=== PATIENT | female | born 1940 | race Caucasian/White ===

== ENCOUNTER 2016-03-12 16:21 | Outpatient (CLI) | payer MEDICARE, OTHER | END 2016-03-12 16:22 | LOC: LABRHC 16:21 | PROVIDERS: ATTEND Family Medicine | DX: R30.0 Dysuria (principal) | CPT/HCPCS: 87086 ==

== ENCOUNTER 2016-03-26 08:20 | Outpatient (CLI) | payer MEDICARE, OTHER ==
[2016-03-26 09:12] LABS: eGFR (African) > 60; eGFR (Non-African) > 60
[2016-03-26 18:50] LABS: T3-UPTAKE 28.9 % (25.4-41.2)
== END 2016-03-26 08:21 ==
LOC: LAB 08:20
PROVIDERS: ATTEND Family Medicine
DX: I10 Essential (primary) hypertension (principal); E03.8 Other specified hypothyroidism
CPT/HCPCS: 36415; 80053; 80061; 84436; 84479

== ENCOUNTER 2016-08-20 15:55 | Outpatient (CLI) | payer MEDICARE, OTHER | END 2016-08-20 15:56 | LOC: LABRHC 15:55 | PROVIDERS: ATTEND Physician Assistant | DX: R30.0 Dysuria (principal) | CPT/HCPCS: 87086 ==

== ENCOUNTER 2017-01-20 10:04 | Outpatient (CLI) | payer MEDICARE, OTHER ==
--- NOTE | 2017-01-20 15:40 | Diagnostic Imaging Report ---
MELISSA GARCIA [facility] [id number] [facility] [address] [id number] Report Submission Date: Jan 20, 2017 10:35:23 AM VICE PRESIDENT OF RECRUITING Patient Study Name: PAOLA WHITLOCK Date: Jan 20, 2017 10:13:41 AM VICE PRESIDENT OF RECRUITING Modality Type: CR Gender: F Description: SPINE : 44 Institution: [facility] Physician: MELISSA GARCIA Examination: Cervical spine History: Injury Comparison exams: None available Findings: 3 views of the cervical spine demonstrate normal height and alignment. No anterior compression. No abnormal listhesis. Osteophytes and disc space narrowing from C4/C5 through C5/C6. No odontoid abnormality. No prevertebral abnormality. Impression: Mid cervical degenerative changes. No compression deformity. If patient is experiencing neurologic symptoms, consider obtaining MRI. Electronically signed on Jan 20, 2017 10:35:23 AM VICE PRESIDENT OF RECRUITING by: Syed BRICE
== END 2017-01-20 10:38 ==
LOC: LAB 10:04
PROVIDERS: ATTEND Family Medicine
DX: M54.2 Cervicalgia (principal)
CPT/HCPCS: 72040

== ENCOUNTER 2017-01-27 13:17 | Outpatient (CLI) | payer MEDICARE, OTHER ==
[~2017-01-27 13:17] MED LIST: 0.9 % SODIUM CHLORIDE PF 10 ML VIAL IJ ONE; Lidocaine 1% 5ml(IM or SUTURE)(PAIN CLINIC) ONE; TRIAMCINOLONE ACETONID 40MG/ML VIAL ONE
--- NOTE | 2017-01-29 09:21 | CERVICAL ESI WITH FLUORO ---
SUBJECTIVE: Ms. Diamond comes in to see me today with acute right-sided neck pain radiating to the shoulder blade and down the right arm. She says it increases over the course of the day. This began after she caught her granddaughter and lifted her , approximately 35 pounds, last month and now she has been having symptoms of cervical radiculitis. I have treated her in the past for lumbar radiculitis with a lumbar epidural steroid injection and this was very successful at resolving her back and hip pain. She denies pain on the left. She denies bridger weakness. She complains of right periscapular pain radiating to the right arm and disuse of the right arm because of pain over the course of the day. An MRI was obtained by Dr. Lara which reveals a disc protrusion at C2-C3, C3-C4, and C4-C5 which are each central and right paracentral, particularly at C3-C4 and C4-C5. A lesser left paracentral disc herniation at C5-C6 and C6-C7. There is no severe spinal stenosis. There is neural foraminal narrowing that is prominent at the C4-C5 level. Plan today for a right C6-C7 epidural steroid injection under fluoroscopic guidance. PHYSICAL EXAM: General: The patient is well nourished, well developed, and in no apparent distress. Awake, alert, and oriented. HEENT: Pupils are equal, round, and reactive to light and accommodation. Extraocular movements intact. No facial droop. Neck: There is full range of motion of the cervical spine. No evidence of adenopathy. Thyroid is nontender, not enlarged. Carotids are without bruits. Chest: Clear to auscultation bilaterally. Normal chest excursion. Heart: Regular rate and rhythm without murmur. Abdomen: Benign. Normoactive bowel sounds. Motor/sensory: Intact in the upper and lower extremities. Moves all extremities freely. Back: There are normal cervical, thoracic and lumbar curvatures. There are negative sacroiliac joint findings bilaterally. No evidence of pain or tenderness over the facet joints. Negative piriformis bilaterally. Negative straight leg raise. No evidence of dermatomal weakness or numbness in the lower extremities. Bilateral negative femoral nerve stretch. Patellar tendons are 2+ and equal bilaterally. PROCEDURE: Right C6-C7 epidural steroid injection with fluoroscopic guidance. DESCRIPTION OF PROCEDURE: The risks and benefits were discussed with the patient, including the risks of infection, bleeding, nerve injury including paralysis, and headache. Furthermore , I discussed the risk of steroid exposure causing hyperglycemia, hypertension, osteoporosis, or increased infectious risks. The patient understood these risks and agreed to proceed. Consent was obtained. The patient was placed prone on the fluoroscopy table with a pillow underneath the chest to afford slight anterior flexion of the cervical spine. The patient' s back of the neck was cleaned and a sterile drape was applied. A 20-gauge thin-wall Tuohy epidural needle was inserted with a right paramedian approach at the C6-C7 interspace level. The position of the needle was verified with AP and lateral fluoroscopic views. The needle was advanced with a normal saline ghli-jd-nyomihsisg technique until aqim-rl-drpptbwmgo was obtained. On obtaining pvvj-xg-lrdsbdeyfb to normal saline it was verified that there was no aspiration of CSF or blood. At this point, Omnipaque 240 myelogram dye was injected into the cervical epidural space. It was verified with fluoroscopic views that the dye was located within the epidural space in the desired distribution. At this point, the medication was injected into the cervical epidural space. The stylet was replaced in the needle and the needle was removed from the neck. The neck was cleaned and a bandage was applied over the injection site. The patient tolerated the procedure well and was monitored afterwards for a total of 20 minutes during which time the vital signs remained stable and no adverse sequelae were experienced. The patient was discharged home in good condition. Prior to discharge the patient was given discharge instructions. ASSESSMENT: Right cervical radiculitis. PLAN: Right C6-C7 epidural steroid injection with fluoroscopic guidance. FOLLOW UP: Return to clinic if problems develop or worsen. cc: Dr. Theresa BRICE
== END 2017-01-27 13:20 ==
LOC: OUT 13:17
PROVIDERS: ATTEND Anesthesiology Pain Medicine
DX: M54.12 Radiculopathy, cervical region (principal)
CPT/HCPCS: J3301; Q9966; 62321; 99213; G0463

== ENCOUNTER 2017-02-25 13:27 | Outpatient (CLI) | payer MEDICARE, OTHER ==
[2017-02-25 22:25] LABS: T3-UPTAKE 28.6 % (25.4-41.2)
== END 2017-02-25 13:30 ==
LOC: LAB 13:27
PROVIDERS: ATTEND Physician Assistant
DX: R53.83 Other fatigue (principal); E03.9 Hypothyroidism, unspecified; R30.0 Dysuria
CPT/HCPCS: 36415; 84436; 84479; 87086

== ENCOUNTER 2017-03-03 09:46 | Outpatient (CLI) | payer MEDICARE, OTHER ==
--- NOTE | 2017-03-05 10:38 | CERVICAL ESI WITH FLUORO ---
SUBJECTIVE: Ms. Diamond follows up with me today as an outpatient in clinic. This is a delightful 76-year-old white female I saw her with right cervical radiculitis last month and placed a right C6-C7 epidural steroid injection for right-sided neck, shoulder blade, and arm pain associated with C4-C5 and C5-C6 neural foraminal narrowing without spinal stenosis. She also has symptoms consistent with cervical spondylosis. She said she had complete 100% relief for 2 weeks and she was able to turn her head. She says that the neck pain has begun to reoccur with pain that radiates into the shoulder blade and the arm is still improved and she is overall better. At this point, I have recommended repeating a cervical epidural steroid injection at C6-C7 today on the right side. I have also talked to her about the fact that there is cervical spondylosis and this could require treatment with using facet medial branch blocks and radiofrequency neurolysis. At this point, she has had a very good response to a single epidural steroid injection and I think it is worth repeating the injection to see if we can get continued long-term improvement. Plan today for a right C6-C7 epidural steroid injection with fluoroscopic guidance. PROCEDURE PERFORMED: Right C6-C7 epidural steroid injection with fluoroscopic guidance. DESCRIPTION OF PROCEDURE: The risks and benefits were discussed with the patient, including the risks of infection, bleeding, nerve injury including paralysis, and headache. Furthermore , I discussed the risk of steroid exposure causing hyperglycemia, hypertension, osteoporosis, or increased infectious risks. The patient understood these risks and agreed to proceed. Consent was obtained. The patient was placed prone on the fluoroscopy table with a pillow underneath the chest to afford slight anterior flexion of the cervical spine. The patient' s back of the neck was cleaned and a sterile drape was applied. A 23-gauge thin-wall Tuohy epidural needle was inserted with a right paramedian approach at the C6-C7 interspace level. The position of the needle was verified with AP and lateral fluoroscopic views. The needle was advanced with a normal saline ncfo-rn-ryhtfrjfsm technique until hvke-az-dvhbgeftxh was obtained. On obtaining qavb-qa-advxugapvj to normal saline, it was verified that there was no aspiration of CSF or blood. At this point, Omnipaque 240 myelogram dye was injected into the cervical epidural space. It was verified with fluoroscopic views that the dye was located within the epidural space in the desired distribution. At this point, the medication was injected into the cervical epidural space. The stylet was replaced in the needle and the needle was removed from the neck. The neck was cleaned and a bandage was applied over the injection site. The patient tolerated the procedure well and was monitored afterwards for a total of 20 minutes during which time the vital signs remained stable and no adverse sequelae were experienced. The patient was discharged home in good condition. Prior to discharge the patient was given discharge instructions. ASSESSMENT: Cervical radiculitis. PLAN: Right C6-C7 epidural steroid injection with fluoroscopic guidance. FOLLOW UP: Return to clinic if problems develop or worsen. cc: Dr. Theresa BRICE
== END 2017-03-03 09:47 ==
LOC: OUT 09:46
PROVIDERS: ATTEND Anesthesiology Pain Medicine
DX: M54.12 Radiculopathy, cervical region (principal)
CPT/HCPCS: J3301; Q9966; 62321; 99213; G0463

== ENCOUNTER 2017-03-05 08:39 | Outpatient (CLI) | payer MEDICARE, OTHER ==
[2017-03-05 09:27] LABS: eGFR (African) > 60; eGFR (Non-African) > 60
== END 2017-03-05 08:40 ==
LOC: LAB 08:39
PROVIDERS: ATTEND Physician Assistant
DX: Z00.00 Encounter for general adult medical examination without abnormal findings (principal); Z13.6 Encounter for screening for cardiovascular disorders
CPT/HCPCS: 36415; 80053; 80061

== ENCOUNTER 2017-04-28 08:14 | Outpatient (CLI) | payer MEDICARE, OTHER ==
--- NOTE | 2017-05-01 13:59 | CERVICAL MEDIAL BRANCH BLOCKS ---
SUBJECTIVE: Ms. Diamond follows up with me today with right-sided neck pain, failing an epidural steroid injection, for facet medial branch blocks for cervical spondylosis. She has no evidence of radiculitis at this point. I have talked to her today about A cervical facet injection and radiofrequency neurolysis and she is in agreement and we will proceed. We will use IV sedation for the procedure. PROCEDURE: Right C3-C4, C4-C5 and C5-C6 cervical facet joint medial branch blocks with fluoroscopy guidance. DESCRIPTION OF PROCEDURE: The risks and benefits of today's injections were discussed with the patient, including the risk of infection, bleeding, seizure, increased neck or arm pain, and nerve injury including paralysis, and headache. Furthermore, I discussed the risk of steroid exposure causing hyperglycemia, hypertension, osteoporosis, or increased infectious risks. The patient understood these risks and agreed to proceed. Consent was obtained. The patient was placed in the prone position on the fluoroscopy table with a pillow supporting the head and maintaining a neutral cervical spine position. The patient's posterior neck was cleaned and a sterile drape was applied. An AP fluoroscopic view of the C3 vetebra was obtained. Under direct fluoroscopic guidance, a 25-gauge Quincke tip spinal needle was inserted in an AP direction until it contacted the lateral aspect of the right C3 articular pillar at the midpoint (the "waist"). The position of the needle was verified with AP and lateral fluoroscopic views. It was verified that there was no aspiration of CSF or blood. At this point, Omnipaque 240 myelogram dye was injected through the needle. It was verified with fluoroscopic views that the dye was located along the lateral aspect of the articular pillar of the site of the medial nerve branch of the dorsal ramus innervating the facet joints. At this point, the medication was injected. The stylet was replaced in the needle and the needle was removed from the neck. The exact procedure was repeated at right C4 articular pillar, right C5 articular pillar, and right C6 articular pillar (for a total of 4 medial nerve branches blocked). The neck was cleaned and a bandage was applied over the injection site. The patient tolerated the procedure well and was monitored afterwards for a total of 20 minutes during which time the vital signs remained stable. The patient experienced no adverse sequelae and was discharged home in good condition. Prior to discharge the patient was given discharge instructions. ASSESSMENT: Cervical spondylosis. PLAN: Right C3-C4, C4-C5 and C5-C6 cervical facet joint medial branch blocks with fluoroscopy guidance. FOLLOW UP: Plan for radiofrequency neurolysis on follow up. cc: Dr. Theresa BRICE
== END 2017-04-28 08:15 ==
LOC: OUT 08:14
PROVIDERS: ATTEND Anesthesiology Pain Medicine
DX: M47.812 Spondylosis without myelopathy or radiculopathy, cervical region (principal)
CPT/HCPCS: J2250; J2704; J7060; 64490; 64491; 64492; 99213; G0463; S1016

== ENCOUNTER 2017-05-26 07:46 | Outpatient (CLI) | payer MEDICARE, OTHER ==
--- NOTE | 2017-05-27 11:48 | PAIN CLINIC PROGRESS NOTES ---
REASON FOR VISIT: I had the opportunity of following up with Lin Lobo today. This is a 76- year-old white female I treated for right cervical spondylosis, neck pain, and pain radiating down her shoulder and arm. She had C3, C4, C5, and C6 facet medial branch blocks and her symptoms completely resolved. She tells me she had immediate relief and she has had no recurrent symptoms. ASSESSMENT: Cervical spondylosis. PLAN: I discussed the underlying cause of her problem, cervical spondylolysis, and possible treatment options including radiofrequency neurolysis if the symptoms should reoccur; and if she has recurrence after 6 months, we would consider repeating facet medial branch blocks. We discussed activity pacing and stretching exercises. She is in agreement and seemed very pleased with her care. Dr. Lara, thank you very much for allowing me to take part in the care of this nice lady. cc: Dr. Theresa BRICE
== END 2017-05-26 07:47 ==
LOC: OUT 07:46
PROVIDERS: ATTEND Anesthesiology Pain Medicine
DX: M43.02 Spondylolysis, cervical region (principal)
CPT/HCPCS: 99214; G0463

== ENCOUNTER 2017-07-28 08:04 | Outpatient (CLI) | payer MEDICARE, OTHER ==
[2017-07-28] MEDS ORDERED: Lidocaine 2% 20ml Vial ONE (08:05)
[2017-07-28] MEDS ORDERED: SALINE FLUSH 10 ML DISP.SYRIN IVF ONE (08:05)
[2017-07-28] MEDS ORDERED: NORMAL SALINE 500 ML IV.SOLN IV ONE (08:05)
[2017-07-28] MEDS ORDERED: BUPIVACAINE HCL/EPINEPHRINE/PF 0.25% VIAL IM ONE (08:05)
[2017-07-28] MEDS ORDERED: KETAMINE HCL 200 MG/20 ML VIAL ONE (08:05)
[2017-07-28] MEDS ORDERED: PROPOFOL 200 MG/20 ML VIAL IV ONE (08:05)
[2017-07-28] MEDS ORDERED: TRIAMCINOLONE ACETONID 40MG/ML VIAL ONE (08:05)
--- NOTE | 2017-07-30 14:59 | CERVICAL FACET RF RHIZOTOMIES ---
SUBJECTIVE: Ms. Diamond comes in today with a return of right-sided neck pain. She had complete 100% immediate relief with facet medial branch block. She said it lasted 5 weeks. The pain and stiffness has returned. She is here for a right C3, C4, C5, and C6 facet radiofrequency neurolysis. I have asked for monitored anesthesia care because of the amount of neck pain and difficulty that she has with lying prone for the procedure. ANESTHESIA: Monitored anesthesia care. OPERATIVE PROCEDURE: Right C3, C4, C5, and C6 cervical radiofrequency medial nerve branch neurolysis with monitored anesthesia care (for a total of 4 medial nerve branch neurolyses ). DESCRIPTION OF PROCEDURE: The risks and benefits if the procedure were explained to the patient including the risk of infection, bleeding, and worsened pain or inadvertent nerve injury causing pain or even paralysis. The implications of bleeding and infection were explained including the extremely low probability of severe consequences including meningitis, infarction/stroke, paralysis and . Furthermore, the risk of seizure was mentioned. The patient understood these risks and agreed to proceed. The patient was placed prone on the fluoroscopic procedure table with a pillow underneath the thorax. The back of the neck was cleaned and sterile drapes were applied. Under an oblique AP fluoroscopic view, the cervical vertebral body was identified. The lateral margin of the right C3 articular pillar was clearly visualized. A 10 centimeter 20 gauge RFK radiofrequency introducer probe with a 10 mm active tip was advanced under direct fluoroscopic guidance until the tip of the probe contacted the lateral most margin of the vertebral body. A lateral fluoroscopic view was then obtained to verify the position of the needle as located at the lateral margin (at the site of the medial branch of the posterior nerve root.) At this point it was verified that there was no aspiration of CSF or blood from the needle tip. The 10 centimeter RFK radiofrequency probe was then introduced through the needle. A 2 Hz stimulus was affected, gradually increasing the voltage up to 2.5 volts, to verify that there was no motor neuron activation causing muscle contraction in the extremities. The probe was then removed from the introducer needle and Omnipaque 240 myelogram dye was injected through the needle and it was verified that the dye was located at the lateral articular pillar margin. Furthermore it was verified that the dye was not located within the epidural space or intrathecal space or intravascular space. The medication was then injected through the introducer needle. The probe was reintroduced into the needle. A radiofrequency lesion was then affected at a temperature of 80 degrees C. for a period of 60 seconds. The needle was then rotated 180 degrees and withdrawn approximately 3 mm and a second lesion was effected for a period of 60 seconds at a temp. of 80 degrees C. The patient reported no adverse effects during the lesioning. The needle and probe were subsequently removed from the neck. This exact procedure was repeated at the following sites: C4, C5, and C6 for a total of 4 medial nerve branch neurolysis. The patients neck was cleaned and bandages were applied where necessary. The patient tolerated the procedure without any complications. The patient was monitored for 20 minutes after the procedure and was stable during that time. The patient was discharged home in good condition. ASSESSMENT: Cervical spondylosis/facet arthropathy. PLAN: Right C3, C4, C5, and C6 cervical radiofrequency medial nerve branch neurolysis with monitored anesthesia care (for a total of 4 medial nerve branch neurolyses ). FOLLOW UP: Return to clinic if problems develop or worsen. cc: Dr. Theresa BRICE
== END 2017-07-28 08:05 ==
LOC: OUT 08:04
PROVIDERS: ATTEND Anesthesiology Pain Medicine
DX: M47.812 Spondylosis without myelopathy or radiculopathy, cervical region (principal); M12.88 Other specific arthropathies, not elsewhere classified, other specified site
CPT/HCPCS: 64633; 64634; 99214; G0463; J2704; J3301; J7060; Q9966; S1016

== ENCOUNTER 2017-09-29 08:49 | Outpatient (CLI) | payer MEDICARE, OTHER ==
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
== END 2017-09-29 08:50 ==
LOC: OUT 08:49
PROVIDERS: ATTEND Anesthesiology Pain Medicine
DX: M47.812 Spondylosis without myelopathy or radiculopathy, cervical region (principal)
CPT/HCPCS: 99213; G0463